=== PATIENT | female | born 1985 | race Caucasian/White ===

== ENCOUNTER 2016-08-25 21:55 | Emergency (ER) | payer BC, OTHER ==
[2016-08-25] MEDS ORDERED: Adacel (T-DAP) 0.5 ML VIAL ONE (22:41)
--- NOTE | 2016-08-26 07:05 | RAD ---
LEFT MIDDLE FINGER: Date: 08/25/16 FINDINGS: Three views show no apparent fracture. The bones and joints currently appear normal. IMPRESSION: No acute bony findings. POS: HOME
== END 2016-08-25 22:47 | disposition home or self-care (01) ==
LOC: BURERS 21:55
DX: S60.032A Contusion of left middle finger without damage to nail, initial encounter (principal); E11.9 Type 2 diabetes mellitus without complications; F32.9 Major depressive disorder, single episode, unspecified; F98.8 Other specified behavioral and emotional disorders with onset usually occurring in childhood and adolescence; F17.210 Nicotine dependence, cigarettes, uncomplicated; Z79.84 Long term (current) use of oral hypoglycemic drugs; Z79.899 Other long term (current) drug therapy; X58.XXXA Exposure to other specified factors, initial encounter
CPT/HCPCS: 90471; 90715